=== PATIENT | female | born 1950 | race Caucasian/White ===

== ENCOUNTER 2022-04-02 14:52 | Outpatient (CLI) | payer OTHER | END 2022-04-02 15:05 | disposition home or self-care (01) | LOC: MRI 14:52 | PROVIDERS: ATTEND Pain Medicine Interventional Pain Medicine | DX: M54.50 Low back pain, unspecified (principal) | CPT/HCPCS: 72148 ==

== ENCOUNTER 2023-11-11 11:19 | Emergency (ER) | payer OTHER ==
[~2023-11-11] VITALS: Ht 165.1 cm; Wt 86.2 kg
[2023-11-11] MEDS ORDERED: METFORMIN HCL500 M4 PO (11:47)
[2023-11-11] MEDS ORDERED: ROSUVASTATIN CA40 MG PO (11:47)
[2023-11-11] MEDS ORDERED: IBUPROFEN800 MG PO (11:48)
[2023-11-11] MEDS ORDERED: METOPROLOL SUCC50 MG PO (11:48)
[2023-11-11] MEDS ORDERED: GABAPENTIN600 MG PO (11:48)
[2023-11-11] MEDS ORDERED: AMMONIUM LACTA385 GM (11:49)
[2023-11-11] MEDS ORDERED: BETAMETHASONE D60 ML TP (11:49)
[2023-11-11] MEDS ORDERED: CLOBETASOL PROP15 GM (11:49)
[2023-11-11] MEDS ORDERED: ACETAMINOPHEN 500 MG GEL..CAP PO ONE ×2 (15:00→15:07)
[2023-11-11 15:42] LABS: PH,URINE 5.5 (5.0-8.0); URINE APPEARANCE Clear; URINE BILIRRUBIN Negative (NEGATIVE); URINE BLOOD Negative; URINE COLOR Yellow; URINE GLUCOSE Negative (NEGATIVE); URINE LEUKOCYTE Moderate; URINE NITRATE Negative; URINE PROTEIN Negative (NEGATIVE); URINE UROBILINOGEN 0.2 E.U./dl
[2023-11-11 15:43] LABS: URINE BACTERIA 554.2 uL (0.0-1933); URINE EPITHELIAL CELLS 47.6 uL (0.0-38.8); URINE RBC 9.6 uL (0.0-20.8); URINE WBC 211.6 uL (0.0-23.2)
[2023-11-11 15:50] LABS: HEMATOCRIT 25.4 % (36.0-45.00); MEAN CELL VOLUME 90.3 fL (80.00-100.00); MEAN CORPUSCULAR HEMOGLOBIN 31.9 pg (27.00-32.0); MEAN CORPUSCULAR HGB CONC 35.3 g/dl (32.0-36.0); PLATELET COUNT 252 K/uL (150-450); RED BLOOD COUNT 2.81 M/uL (4.00-6.00); RED CELL DISTRIBUTION WIDTH 14.5 % (11.5-14.5)
[2023-11-11 16:23] LABS: CALCIUM 9.2 mg/dL (8.5-10.1); CREATININE SERUM 0.81 mg/dL (0.55-1.02); GFR 68.93; POTASSIUM 3.99 mEq/L (3.5-5.1); TSH 1.57 uIU/mL (0.358-3.74)
[2023-11-11] MEDS ORDERED: NITROFURANTOIN100 MG PO (18:20)
== END 2023-11-11 18:45 ==
LOC: ER 11:20
PROVIDERS: Nurse Practitioner Family
DX: N39.0 Urinary tract infection, site not specified (principal); R53.81 Other malaise; Z88.6 Allergy status to analgesic agent; Z88.0 Allergy status to penicillin; E78.00 Pure hypercholesterolemia, unspecified; I10 Essential (primary) hypertension; G62.9 Polyneuropathy, unspecified; Z20.822 Contact with and (suspected) exposure to COVID-19; E11.9 Type 2 diabetes mellitus without complications; Z79.84 Long term (current) use of oral hypoglycemic drugs